=== PATIENT | male | born 1970 | race American Indian/Alaskan Native ===

== ENCOUNTER 2018-11-30 03:20 | Emergency (ER) | payer MEDICARE, MEDICAID ==
[~2018-11-30] VITALS: Ht 175.3 cm; Wt 75.0 kg
[~2018-11-30 03:20] MED LIST: CHANTIX 1 MG TAB1 MG PO; COZAAR50 MG PO; CRESTOR40 MG PO; ZANAFLEX2 M1 PO; ZANTAC150 MG PO
[2018-11-30 03:27] VITALS: Ht 175.3 cm; Wt 75.0 kg
[2018-11-30] MEDS ORDERED: DICLOFENAC SODI50 MG PO (03:42)
[2018-11-30 03:59] VITALS: BP 116/70
== END 2018-11-30 04:00 | disposition home or self-care (01) ==
LOC: D.ER 03:20
DX: M25.512 Pain in left shoulder (principal); M54.5 Low back pain

== ENCOUNTER 2018-12-28 23:50 | Emergency (ER) | payer MEDICARE, MEDICAID ==
[~2018-12-28] VITALS: Ht 175.3 cm; Wt 73.5 kg
[~2018-12-28 23:50] MED LIST changes: +DICLOFENAC SODI50 MG PO
[2018-12-28 23:56] VITALS: Ht 175.3 cm; Wt 73.5 kg
[2018-12-29] MEDS ORDERED: NAPROSYN500 MG PO (00:24)
[2018-12-29 01:02] VITALS: BP 152/78
== END 2018-12-29 01:03 | disposition home or self-care (01) ==
LOC: D.ER 23:50
DX: M25.512 Pain in left shoulder (principal)

== ENCOUNTER 2019-01-03 22:07 | Inpatient (IN) | payer MEDICARE, MEDICAID ==
[~2019-01-03] VITALS: Ht 175.3 cm; Wt 77.3 kg
[~2019-01-03 22:07] MED LIST changes: +NAPROSYN500 MG PO
[2019-01-03] MEDS ORDERED: GLUCOPHAGE500 MG PO (22:14)
[2019-01-03 22:55] LABS: BASOPHILS 0.1 % (0-2); EOSINOPHILS 0.9 % (0-7); HEMATOCRIT 40.9 % (42.0-54.0); HEMOGLOBIN 13.8 g/dL (13.5-17.5); IMMATURE GRANULOCYTES 0.4 % (0-5); LYMPHOCYTES 24.2 % (15-50); MCH 32.2 pg (26.0-34.0); MCHC 33.7 g/dL (31.0-37.0); MCV 95.6 fL (80.0-100.0); MEAN PLATELET VOLUME 8.5 fL (7.4-10.4); NEUTROPHILS 68.4 % (40-80); PLATELET COUNT 407 10x3/uL (130-400); RBC 4.28 10x6/uL (4.20-6.10); RDW 15.6 % (11.5-14.5); WBC 15.9 10x3/uL (4.8-10.8)
[2019-01-03 23:07] LABS: APTT 28.9 SECONDS (22.8-39.4); INR 0.94 (0.85-1.17); PROTIME 12.1 SECONDS (11.6-15.0)
[2019-01-03 23:16] LABS: ALBUMIN 3.2 g/dL (3.4-5.0); ALKALINE PHOSPHATASE 132 U/L (46-116); ALT (SGPT) 158 U/L (10-68); CALC OSMOLALITY 282 mosm/kg (275-300); CALCIUM 9.3 mg/dL (8.5-10.1); CARBON DIOXIDE 28.5 mmol/L (21.0-32.0); CHLORIDE - SERUM 101 mmol/L (98-107); GLUCOSE 113 mg/dL (74-106); POTASSIUM - SERUM 3.3 mmol/L (3.5-5.1); PROTEIN - SERUM 7.8 g/dL (6.4-8.2); SODIUM 141 mmol/L (136-145); UREA NITROGEN 14 mg/dL (7-18); eGFR NON AFRICAN AMERICAN 85 mL/min (90-120)
[2019-01-03 23:22] LABS: CKMB 0.4 U/L (0.0-3.6); CREATINE KINASE 39 UL (21-232); PRO BNP 61 pg/mL (0-125); TROPONIN-I < 0.017 ng/mL (0.000-0.060)
[2019-01-04] VITALS (31 sets, daily range): BP systolic 82–169; BP diastolic 44–99; BMI 23.4; BMI 23.3
[2019-01-04 05:03] LABS: APPEARANCE CLEAR (CLEAR); BILIRUBIN NEGATIVE (NEGATIVE); COLOR YELLOW (YELLOW); GLUCOSE NEGATIVE (NEGATIVE); KETONE NEGATIVE (NEGATIVE); NITRITE NEGATIVE (NEGATIVE); PROTEIN NEGATIVE (NEGATIVE); UROBILINOGEN NORMAL (NORMAL)
[2019-01-04 11:13] LABS: UDS - AMPHET NEGATIVE QUAL (NEGATIVE); UDS - BARB NEGATIVE QUAL (NEGATIVE); UDS - BENZO NEGATIVE QUAL (NEGATIVE); UDS - COCAINE NEGATIVE QUAL (NEGATIVE); UDS - OPIATE POSITIVE QUAL (NEGATIVE); UDS - PCP NEGATIVE QUAL (NEGATIVE); UDS - THC NEGATIVE QUAL (NEGATIVE)
[2019-01-05] VITALS (24 sets, daily range): BP systolic 69–142; BP diastolic 39–84
[2019-01-05 03:33] LABS: BASOPHILS 0.1 % (0-2); EOSINOPHILS 0.3 % (0-7); HEMATOCRIT 30.5 % (42.0-54.0); IMMATURE GRANULOCYTES 0.4 % (0-5); LYMPHOCYTES 4.6 % (15-50); MCH 31.4 pg (26.0-34.0); MCHC 32.8 g/dL (31.0-37.0); MCV 95.9 fL (80.0-100.0); MEAN PLATELET VOLUME 8.6 fL (7.4-10.4); MONOCYTES 5.4 % (2-11); NEUTROPHILS 89.2 % (40-80); PLATELET COUNT 338 10x3/uL (130-400); RBC 3.18 10x6/uL (4.20-6.10); RDW 15.8 % (11.5-14.5); WBC 14.5 10x3/uL (4.8-10.8)
[2019-01-05 03:55] LABS: ANION GAP 11.8 mmol/L (8-16); BILIRUBIN - DIRECT 0.12 mg/dL (0.00-0.30); BILIRUBIN - INDIRECT 0.2 mg/dL (0.00-1.00); BILIRUBIN - TOTAL 0.32 mg/dL (0.2-1.3); CALCIUM 7.6 mg/dL (8.5-10.1); CARBON DIOXIDE 24.2 mmol/L (21.0-32.0); CREATININE - SERUM 1.2 mg/dL (0.6-1.3); MAGNESIUM - SERUM 1.9 mg/dL (1.8-2.4); PHOSPHOROUS 3.8 mg/dL (2.5-4.9)
[2019-01-05 04:01] LABS: ALBUMIN 1.9 g/dL (3.4-5.0); PROTEIN - SERUM 5.6 g/dL (6.4-8.2)
[2019-01-05 04:22] LABS: PRO BNP 52 pg/mL (0-125)
[2019-01-05 04:24] LABS: TROPONIN-I < 0.017 ng/mL (0.000-0.060)
[2019-01-05 08:44] LABS: CALC OSMOLALITY 281 mosm/kg (275-300); CALCIUM 7.4 mg/dL (8.5-10.1); CARBON DIOXIDE 25.2 mmol/L (21.0-32.0); CHLORIDE - SERUM 108 mmol/L (98-107); CREATININE - SERUM 1.1 mg/dL (0.6-1.3); GLUCOSE 123 mg/dL (74-106); POTASSIUM - SERUM 4.1 mmol/L (3.5-5.1); SODIUM 140 mmol/L (136-145); UREA NITROGEN 18 mg/dL (7-18); eGFR NON AFRICAN AMERICAN 76 mL/min (90-120)
[2019-01-05 13:52] LABS: APPEARANCE CLEAR (CLEAR); BILIRUBIN NEGATIVE (NEGATIVE); COLOR AMBER (YELLOW); GLUCOSE NEGATIVE (NEGATIVE); KETONE SMALL mg/dL (NEGATIVE); NITRITE NEGATIVE (NEGATIVE); PROTEIN 1+ mg/dL (NEGATIVE); UROBILINOGEN NORMAL (NORMAL); WHITE CELLS - URINE 0-5 /hpf (0-5)
[2019-01-05 13:53] LABS: AMORPHOUS SEDIMENT >1+ /lpf (NONE SEEN); BACTERIA MANY /hpf (NONE SEEN); EPITHELIAL CELLS 0-5 /hpf (0-5); MUCUS <1+ /lpf (NONE SEEN)
[2019-01-06] VITALS (23 sets, daily range): BP systolic 87–151; BP diastolic 45–74
[2019-01-06 06:17] LABS: BASOPHILS 0.1 % (0-2); EOSINOPHILS 0.5 % (0-7); HEMATOCRIT 28.5 % (42.0-54.0); HEMOGLOBIN 9.3 g/dL (13.5-17.5); IMMATURE GRANULOCYTES 0.3 % (0-5); LYMPHOCYTES 6.5 % (15-50); MCH 31.3 pg (26.0-34.0); MCHC 32.6 g/dL (31.0-37.0); MONOCYTES 4.7 % (2-11); NEUTROPHILS 87.9 % (40-80); PLATELET COUNT 318 10x3/uL (130-400); RBC 2.97 10x6/uL (4.20-6.10); RDW 16.1 % (11.5-14.5)
[2019-01-06 06:18] LABS: WBC 18.2 10x3/uL (4.8-10.8)
[2019-01-06 06:41] LABS: ALBUMIN 1.7 g/dL (3.4-5.0); ALKALINE PHOSPHATASE 75 U/L (46-116); ALT (SGPT) 58 U/L (10-68); BILIRUBIN - TOTAL 0.56 mg/dL (0.2-1.3); CALC OSMOLALITY 277 mosm/kg (275-300); CALCIUM 7.1 mg/dL (8.5-10.1); CARBON DIOXIDE 20.5 mmol/L (21.0-32.0); CHLORIDE - SERUM 107 mmol/L (98-107); GLUCOSE 103 mg/dL (74-106); POTASSIUM - SERUM 3.7 mmol/L (3.5-5.1); PROTEIN - SERUM 5.9 g/dL (6.4-8.2); SODIUM 138 mmol/L (136-145); UREA NITROGEN 19 mg/dL (7-18); eGFR NON AFRICAN AMERICAN 85 mL/min (90-120)
[2019-01-06 08:34] LABS: INR 1.1 (0.85-1.17); PROTIME 13.7 SECONDS (11.6-15.0)
[2019-01-06 15:40] LABS: PROTEIN - BODY FLUID 3.9 G/DL
[2019-01-06 16:50] LABS: EOS BF 1 %; MACROPHAGES BF 7 %; NEUT - BF 89 %
--- NOTE | 2019-01-06 17:39 | MORECARE ---
CASE MANAGEMENT DISCHARGE SUMMARY PATIENT: BRIGITTE HOOKS UNIT: [id number] ADM DATE: 01/04/19 AGE: 48 : 72 SEX: M ROOM/BED: D.2315 AUTHOR: GABO CERRATO PHYSICIAN: REFERRING PHYSICIAN: ARIANNA CHRISTINE MD DATE OF SERVICE: 01/06/19 Discharge Plan Patient Name: BRIGITTE HOOKS Facility: [facility]:[place] : 1970 Planned Disposition: Anticipated Discharge Date: Discharge Date: Expected LOS: Initial Reviewer: [email or web address] Initial Review Date: 01/04/2019 Generated: 01/06/19 6:38 pm Comments DCP- Discharge Planning Updated by [email or web address]: Giselle Yuan on 01/06/19 4:[address] CM attempted to visit with patient regarding discharge planning/ needs. Patient currently on vent no family available. CM will continue to follow and assist as needed with discharge planning / needs Patient Name: BRIGITTE HOOKS Page 10721 at 1739 All edits/amendments must be made on the electronic document DICTATION DATE: 01/06/191737 SHAPER HAND: ANALISA 01/06/191737 RPT#: [id number] DC DATE: STATUS: ADM IN [facility] [address] [place] [address] END OF REPORT
[2019-01-07] VITALS (20 sets, daily range): BP systolic 90–148; BP diastolic 46–84
[2019-01-07 05:03] LABS: INR 1.18 (0.85-1.17); PROTIME 14.5 SECONDS (11.6-15.0)
[2019-01-07 06:59] LABS: HEMATOCRIT 30.2 % (42.0-54.0); HEMOGLOBIN 9.5 g/dL (13.5-17.5); MCH 30.5 pg (26.0-34.0); MCHC 31.5 g/dL (31.0-37.0); MCV 97.1 fL (80.0-100.0); MEAN PLATELET VOLUME 9.2 fL (7.4-10.4); PLATELET COUNT 302 10x3/uL (130-400); RBC 3.11 10x6/uL (4.20-6.10); RDW 16.3 % (11.5-14.5)
[2019-01-07 07:33] LABS: ALBUMIN 1.7 g/dL (3.4-5.0); ALKALINE PHOSPHATASE 113 U/L (46-116); ALT (SGPT) 45 U/L (10-68); BILIRUBIN - TOTAL 0.65 mg/dL (0.2-1.3); CALCIUM 7.4 mg/dL (8.5-10.1); CARBON DIOXIDE 19.9 mmol/L (21.0-32.0); CHLORIDE - SERUM 111 mmol/L (98-107); CREATININE - SERUM 0.9 mg/dL (0.6-1.3); GLUCOSE 101 mg/dL (74-106); MAGNESIUM - SERUM 2.7 mg/dL (1.8-2.4); PROTEIN - SERUM 6.1 g/dL (6.4-8.2); SODIUM 142 mmol/L (136-145); eGFR NON AFRICAN AMERICAN > 90 mL/min (90-120)
[2019-01-07 07:37] LABS: CALC OSMOLALITY 282 mosm/kg (275-300); POTASSIUM - SERUM 4.3 mmol/L (3.5-5.1); UREA NITROGEN 13 mg/dL (7-18)
[2019-01-07 08:26] LABS: BASOPHILS 1 % (0-2); EOSINOPHILS 1 % (0-7); LYMPHOCYTES 4 % (15-50); MONOCYTES 10 % (2-11); NEUTROPHILS 79 % (40-80); PLATELET ESTIMATE NORMAL
[2019-01-07 15:11] LABS: ACID FAST SMEAR Negative (()); AFB SPECIMEN PROCESSING Not Indicated (())
[2019-01-07 15:11] LABS: ACID FAST SMEAR Negative (()); AFB SPECIMEN PROCESSING Concentration (())
[2019-01-08] VITALS (24 sets, daily range): BP systolic 84–109; BP diastolic 52–63
[2019-01-08 07:01] LABS: BASOPHILS 0.1 % (0-2); HEMATOCRIT 26.1 % (42.0-54.0); HEMOGLOBIN 8.4 g/dL (13.5-17.5); IMMATURE GRANULOCYTES 0.6 % (0-5); LYMPHOCYTES 7.1 % (15-50); MCH 30.5 pg (26.0-34.0); MCHC 32.2 g/dL (31.0-37.0); MEAN PLATELET VOLUME 9.5 fL (7.4-10.4); MONOCYTES 6.4 % (2-11); NEUTROPHILS 84.8 % (40-80); PLATELET COUNT 303 10x3/uL (130-400); RBC 2.75 10x6/uL (4.20-6.10); RDW 16.4 % (11.5-14.5)
[2019-01-08 07:06] LABS: MCV 94.9 fL (80.0-100.0); WBC 13.8 10x3/uL (4.8-10.8)
[2019-01-08 07:10] LABS: CALC OSMOLALITY 283 mosm/kg (275-300); CALCIUM 7.5 mg/dL (8.5-10.1); CHLORIDE - SERUM 109 mmol/L (98-107); CREATININE - SERUM 0.9 mg/dL (0.6-1.3); GLUCOSE 147 mg/dL (74-106); SODIUM 141 mmol/L (136-145); UREA NITROGEN 12 mg/dL (7-18); eGFR NON AFRICAN AMERICAN > 90 mL/min (90-120)
[2019-01-08 07:13] LABS: CARBON DIOXIDE 24.9 mmol/L (21.0-32.0); POTASSIUM - SERUM 3.4 mmol/L (3.5-5.1)
[2019-01-08 16:09] LABS: FUNGUS STAIN Final report (())
[2019-01-08 16:09] LABS: FUNGUS STAIN Final report (())
--- NOTE | 2019-01-08 19:01 | MORECARE ---
CASE MANAGEMENT DISCHARGE SUMMARY PATIENT: BRIGITTE HOOKS UNIT: [id number] ADM DATE: 01/04/19 AGE: 48 : 72 SEX: M ROOM/BED: D.2315 AUTHOR: GABO CERRATO PHYSICIAN: REFERRING PHYSICIAN: ARIANNA CHRISTINE MD DATE OF SERVICE: 01/08/19 Discharge Plan Patient Name: BRIGITTE HOOKS Facility: [facility] [place] : 1970 Planned Disposition: Anticipated Discharge Date: Discharge Date: Expected LOS: Initial Reviewer: [email or web address] Initial Review Date: 01/08/2019 Generated: 01/08/19 8:00 pm DCP- Discharge Planning Updated by [email or web address]: Giselle Yuan on 01/06/19 4:[address] CM attempted to visit with patient regarding discharge planning/ needs. Patient currently on vent no family available. CM will continue to follow and assist as needed with discharge planning / needs Last DP export: 01/06/19 4:38 p Patient Name: BRIGITTE HOOKS Page 36005 at 1901 All edits/amendments must be made on the electronic document DICTATION DATE: 01/08/191899 CAMPAIGN CONSULTANT: ANALISA 01/08/191899 RPT#: [id number] DC DATE: STATUS: ADM IN [facility] [address] [place] [address] END OF REPORT
--- NOTE | 2019-01-08 19:07 | MORECARE ---
CASE MANAGEMENT DISCHARGE SUMMARY PATIENT: BRIGITTE HOOKS UNIT: [id number] ADM DATE: 01/04/19 AGE: 48 : 72 SEX: M ROOM/BED: D.2315 AUTHOR: SAQIB,DOC PHYSICIAN: REFERRING PHYSICIAN: ARIANNA CHRISTINE MD DATE OF SERVICE: 01/08/19 Discharge Plan Patient Name: BRIGITTE HOOKS Facility: [facility]:[place] : 1970 Planned Disposition: Anticipated Discharge Date: Discharge Date: Expected LOS: Initial Reviewer: [email or web address] Initial Review Date: 01/08/2019 Generated: 01/08/19 8:07 pm Comments DCP- Discharge Planning Updated by [email or web address]: Giselle Yuan on 01/08/19 6:[address] Patient Name: BRIGITTE HOOKS Admission Status: ER Accout number: [id number] Admission Date: 01-04-2019 : 1970 Admission Diagnosis:SPONTANEOUS TENSION PNEUMOTHORAX Attending: ARIANNA CHRISTINE Current LOS: 4 Anticipated DC Date: Planned Disposition: Primary Insurance: [employer] Discharge Planning Comments: CM met with spouse (Manda) after explaining CM role and obtaining verbal consent. Patient lives at home with his Manda and plans to return there upon discharge. Spouse feels this would be a safe discharge. CM discussed availability / needs of home health and medical equipment. Spouse denies any discharge needs at this time. He will have family drive him home upon discharge. CM will continue to follow and assist as needed with discharge planning / needs. Anodize Machine Operator: Giselle Yuan DCP- Discharge Planning Updated by [id number]: Giselle Yuan on 01/06/19 4:[address] CM attempted to visit with patient regarding discharge planning/ needs. Patient currently on vent no family available. CM will continue to follow and assist as needed with discharge planning / needs DCPIA - Discharge Planning Initial Assessment Updated by [email or web address]: Giselle Yuan on 01/08/19 7:01 pm * Is the patient Alert and Oriented? No * How many steps to enter\exit or inside your home? * PCP EDVIN HINTON MD * Pharmacy [facility] * Preadmission Environment Home with Family * ADLs Independent * List name and contact numbers for known caregivers / representatives who currently or will assist patient after discharge: MANDA HOOKS - SPOUSE- [phone] * Verbal permission to speak to the caregivers and representatives has been obtained from the patient. N/A * Community resources currently utilized None * Additional services required to return to the preadmission environment? No * Can the patient safely return to the preadmission environment? Yes * Has this patient been hospitalized within the prior 30 days at any hospital? No Last DP export: 01/08/19 6:01 pm Patient Name: BRIGITTE HOOKS Page 25263 at 1907 All edits/amendments must be made on the electronic document DICTATION DATE: 01/08/191906 MITTEN SEWER: ANALISA 01/08/191906 RPT#: [id number] DC DATE: STATUS: ADM IN [facility] [address] [place] [address] END OF REPORT
[2019-01-09] VITALS (22 sets, daily range): BP systolic 97–119; BP diastolic 55–69
[2019-01-09 04:53] LABS: BASOPHILS 0.1 % (0-2); EOSINOPHILS 0.9 % (0-7); HEMATOCRIT 25.4 % (42.0-54.0); HEMOGLOBIN 8.3 g/dL (13.5-17.5); IMMATURE GRANULOCYTES 0.9 % (0-5); LYMPHOCYTES 10.1 % (15-50); MCH 30.6 pg (26.0-34.0); MCHC 32.7 g/dL (31.0-37.0); MCV 93.7 fL (80.0-100.0); MEAN PLATELET VOLUME 9.7 fL (7.4-10.4); MONOCYTES 5.9 % (2-11); NEUTROPHILS 82.1 % (40-80); PLATELET COUNT 308 10x3/uL (130-400); RBC 2.71 10x6/uL (4.20-6.10); RDW 16.5 % (11.5-14.5)
[2019-01-09 04:54] LABS: CALC OSMOLALITY 282 mosm/kg (275-300); CALCIUM 7.6 mg/dL (8.5-10.1); CARBON DIOXIDE 28.8 mmol/L (21.0-32.0); CHLORIDE - SERUM 106 mmol/L (98-107); CREATININE - SERUM 0.9 mg/dL (0.6-1.3); GLUCOSE 132 mg/dL (74-106); POTASSIUM - SERUM 3.4 mmol/L (3.5-5.1); SODIUM 141 mmol/L (136-145); UREA NITROGEN 12 mg/dL (7-18); eGFR NON AFRICAN AMERICAN > 90 mL/min (90-120)
[2019-01-09 12:51] LABS: EOS BF 1 %; MACROPHAGES BF 8 %; MESOTHELIALS BF 4 %; NEUT - BF 84 %
[2019-01-09 16:28] LABS: HEMATOCRIT 24.4 % (42.0-54.0); HEMOGLOBIN 7.9 g/dL (13.5-17.5)
[2019-01-09 18:07] LABS: AEROBE ID Final report (()); RESULT 1 Rothia mucilaginosa (())
[2019-01-10] VITALS (23 sets, daily range): BP systolic 100–175; BP diastolic 55–99
[2019-01-10 05:44] LABS: BASOPHILS 0.2 % (0-2); EOSINOPHILS 1.3 % (0-7); HEMATOCRIT 23.8 % (42.0-54.0); HEMOGLOBIN 7.9 g/dL (13.5-17.5); IMMATURE GRANULOCYTES 0.7 % (0-5); MCHC 33.2 g/dL (31.0-37.0); MCV 93.3 fL (80.0-100.0); MEAN PLATELET VOLUME 10.7 fL (7.4-10.4); MONOCYTES 4.9 % (2-11); NEUTROPHILS 81.9 % (40-80); PLATELET COUNT 315 10x3/uL (130-400); RBC 2.55 10x6/uL (4.20-6.10); RDW 16.1 % (11.5-14.5); WBC 12.8 10x3/uL (4.8-10.8)
[2019-01-10 06:05] LABS: ALBUMIN 1.5 g/dL (3.4-5.0); ALKALINE PHOSPHATASE 204 U/L (46-116); ALT (SGPT) 32 U/L (10-68); AMYLASE - SERUM 90 U/L (25-115); BILIRUBIN - TOTAL 1.29 mg/dL (0.2-1.3); CALC OSMOLALITY 286 mosm/kg (275-300); CALCIUM 7.5 mg/dL (8.5-10.1); CARBON DIOXIDE 31.3 mmol/L (21.0-32.0); CHLORIDE - SERUM 105 mmol/L (98-107); CREATININE - SERUM 1.1 mg/dL (0.6-1.3); GLUCOSE 133 mg/dL (74-106); LIPASE 122 U/L (73-393); POTASSIUM - SERUM 3.6 mmol/L (3.5-5.1); PRO BNP 260 pg/mL (0-125); PROTEIN - SERUM 5.9 g/dL (6.4-8.2); SODIUM 142 mmol/L (136-145); eGFR NON AFRICAN AMERICAN 76 mL/min (90-120)
[2019-01-10 06:06] LABS: UREA NITROGEN 19 mg/dL (7-18)
[2019-01-10 15:12] LABS: ACID FAST SMEAR Negative (()); AFB SPECIMEN PROCESSING Concentration (())
[2019-01-11] VITALS (24 sets, daily range): BP systolic 113–165; BP diastolic 71–843; Ht 175.3 cm; Wt 77.3 kg
[2019-01-11 05:48] LABS: BASOPHILS 0.1 % (0-2); EOSINOPHILS 1.2 % (0-7); HEMATOCRIT 23.6 % (42.0-54.0); HEMOGLOBIN 7.6 g/dL (13.5-17.5); IMMATURE GRANULOCYTES 0.5 % (0-5); LYMPHOCYTES 13.1 % (15-50); MCH 30.4 pg (26.0-34.0); MCHC 32.2 g/dL (31.0-37.0); MCV 94.4 fL (80.0-100.0); MONOCYTES 5.6 % (2-11); NEUTROPHILS 79.5 % (40-80); PLATELET COUNT 310 10x3/uL (130-400); RDW 16.2 % (11.5-14.5)
[2019-01-11 06:18] LABS: ALBUMIN 1.5 g/dL (3.4-5.0); ALKALINE PHOSPHATASE 190 U/L (46-116); ALT (SGPT) 28 U/L (10-68); BILIRUBIN - TOTAL 0.66 mg/dL (0.2-1.3); CALCIUM 7.3 mg/dL (8.5-10.1); CARBON DIOXIDE 26.6 mmol/L (21.0-32.0); CREATININE - SERUM 0.9 mg/dL (0.6-1.3); GLUCOSE 133 mg/dL (74-106); PRO BNP 574 pg/mL (0-125); PROTEIN - SERUM 5.7 g/dL (6.4-8.2); UREA NITROGEN 20 mg/dL (7-18); eGFR NON AFRICAN AMERICAN > 90 mL/min (90-120)
[2019-01-11 06:23] LABS: CHLORIDE - SERUM 109 mmol/L (98-107); SODIUM 144 mmol/L (136-145)
[2019-01-11 07:21] LABS: CALC OSMOLALITY 292 mosm/kg (275-300)
[2019-01-12] VITALS (23 sets, daily range): BP systolic 120–149; BP diastolic 72–94
[2019-01-12 07:04] LABS: ALBUMIN 1.8 g/dL (3.4-5.0); ALKALINE PHOSPHATASE 192 U/L (46-116); ALT (SGPT) 29 U/L (10-68); BILIRUBIN - TOTAL 0.92 mg/dL (0.2-1.3); CALC OSMOLALITY 293 mosm/kg (275-300); CALCIUM 7.4 mg/dL (8.5-10.1); CARBON DIOXIDE 23.2 mmol/L (21.0-32.0); CHLORIDE - SERUM 111 mmol/L (98-107); CREATININE - SERUM 0.9 mg/dL (0.6-1.3); GLUCOSE 124 mg/dL (74-106); PROTEIN - SERUM 5.6 g/dL (6.4-8.2); SODIUM 146 mmol/L (136-145); UREA NITROGEN 19 mg/dL (7-18); eGFR NON AFRICAN AMERICAN > 90 mL/min (90-120)
[2019-01-12 07:05] LABS: POTASSIUM - SERUM 3.4 mmol/L (3.5-5.1)
[2019-01-12 07:25] LABS: BASOPHILS 0.1 % (0-2); EOSINOPHILS 1.9 % (0-7); IMMATURE GRANULOCYTES 0.5 % (0-5); LYMPHOCYTES 15.3 % (15-50); MCH 31.3 pg (26.0-34.0); MEAN PLATELET VOLUME 10.5 fL (7.4-10.4); MONOCYTES 5.9 % (2-11); NEUTROPHILS 76.3 % (40-80); PLATELET COUNT 299 10x3/uL (130-400); RDW 16.2 % (11.5-14.5); WBC 10.3 10x3/uL (4.8-10.8)
[2019-01-12 07:36] LABS: HEMATOCRIT 29.4 % (42.0-54.0); MCV 91.9 fL (80.0-100.0)
[2019-01-13] VITALS (24 sets, daily range): BP systolic 120–155; BP diastolic 75–96
[2019-01-13 06:33] LABS: BASOPHILS 0.2 % (0-2); HEMATOCRIT 30.6 % (42.0-54.0); HEMOGLOBIN 9.9 g/dL (13.5-17.5); IMMATURE GRANULOCYTES 0.5 % (0-5); LYMPHOCYTES 11.5 % (15-50); MCH 30.7 pg (26.0-34.0); MCHC 32.4 g/dL (31.0-37.0); MEAN PLATELET VOLUME 10.6 fL (7.4-10.4); MONOCYTES 7.4 % (2-11); NEUTROPHILS 78.4 % (40-80); PLATELET COUNT 297 10x3/uL (130-400); RBC 3.22 10x6/uL (4.20-6.10); RDW 16.8 % (11.5-14.5); WBC 10.3 10x3/uL (4.8-10.8)
[2019-01-13 06:55] LABS: ALBUMIN 1.7 g/dL (3.4-5.0); ALKALINE PHOSPHATASE 167 U/L (46-116); ALT (SGPT) 32 U/L (10-68); BILIRUBIN - TOTAL 0.64 mg/dL (0.2-1.3); CALC OSMOLALITY 291 mosm/kg (275-300); CALCIUM 7.7 mg/dL (8.5-10.1); CARBON DIOXIDE 25.9 mmol/L (21.0-32.0); CHLORIDE - SERUM 112 mmol/L (98-107); CREATININE - SERUM 0.8 mg/dL (0.6-1.3); GLUCOSE 133 mg/dL (74-106); POTASSIUM - SERUM 3.9 mmol/L (3.5-5.1); PROTEIN - SERUM 6.2 g/dL (6.4-8.2); SODIUM 145 mmol/L (136-145); UREA NITROGEN 16 mg/dL (7-18); eGFR NON AFRICAN AMERICAN > 90 mL/min (90-120)
[2019-01-13 12:10] LABS: FUNGUS MYCOLOGY CULTURE Preliminary report (()); FUNGUS STAIN RESULT 1 Hyphae observed (())
[2019-01-13 12:10] LABS: FUNGUS CULTURE RESULT 1 Candida albicans (()); FUNGUS MYCOLOGY CULTURE Preliminary report (())
[2019-01-13 17:08] LABS: AEROBE ID Final report (())
[2019-01-14] VITALS (20 sets, daily range): BP systolic 117–148; BP diastolic 67–90
[2019-01-14 07:29] LABS: BASOPHILS 0.2 % (0-2); EOSINOPHILS 2.2 % (0-7); HEMATOCRIT 31.6 % (42.0-54.0); HEMOGLOBIN 10.2 g/dL (13.5-17.5); IMMATURE GRANULOCYTES 0.3 % (0-5); LYMPHOCYTES 11.7 % (15-50); MCH 30.7 pg (26.0-34.0); MCHC 32.3 g/dL (31.0-37.0); MCV 95.2 fL (80.0-100.0); MEAN PLATELET VOLUME 10.4 fL (7.4-10.4); MONOCYTES 5.7 % (2-11); NEUTROPHILS 79.9 % (40-80); RBC 3.32 10x6/uL (4.20-6.10); RDW 16.7 % (11.5-14.5); WBC 9.5 10x3/uL (4.8-10.8)
[2019-01-14 07:35] LABS: PLATELET COUNT 364 10x3/uL (130-400)
[2019-01-14 07:47] LABS: ALBUMIN 1.9 g/dL (3.4-5.0); ALKALINE PHOSPHATASE 153 U/L (46-116); BILIRUBIN - TOTAL 0.49 mg/dL (0.2-1.3); CALC OSMOLALITY 290 mosm/kg (275-300); CALCIUM 7.9 mg/dL (8.5-10.1); CARBON DIOXIDE 28.8 mmol/L (21.0-32.0); CHLORIDE - SERUM 110 mmol/L (98-107); CREATININE - SERUM 0.7 mg/dL (0.6-1.3); GLUCOSE 128 mg/dL (74-106); PROTEIN - SERUM 6.2 g/dL (6.4-8.2); SODIUM 145 mmol/L (136-145); UREA NITROGEN 12 mg/dL (7-18); eGFR NON AFRICAN AMERICAN > 90 mL/min (90-120)
[2019-01-14 07:49] LABS: ALT (SGPT) 41 U/L (10-68); POTASSIUM - SERUM 3.1 mmol/L (3.5-5.1)
[2019-01-15] VITALS (24 sets, daily range): BP systolic 125–164; BP diastolic 68–110
[2019-01-15 05:23] LABS: BASOPHILS 0.2 % (0-2); EOSINOPHILS 1.8 % (0-7); HEMATOCRIT 31.3 % (42.0-54.0); HEMOGLOBIN 10.1 g/dL (13.5-17.5); IMMATURE GRANULOCYTES 0.1 % (0-5); LYMPHOCYTES 18.1 % (15-50); MCH 30.6 pg (26.0-34.0); MCHC 32.3 g/dL (31.0-37.0); MCV 94.8 fL (80.0-100.0); MEAN PLATELET VOLUME 10.5 fL (7.4-10.4); MONOCYTES 6.8 % (2-11); PLATELET COUNT 386 10x3/uL (130-400); RDW 16.5 % (11.5-14.5); WBC 8.5 10x3/uL (4.8-10.8)
[2019-01-15 05:37] LABS: ALKALINE PHOSPHATASE 139 U/L (46-116); ALT (SGPT) 32 U/L (10-68); BILIRUBIN - TOTAL 0.63 mg/dL (0.2-1.3); CALC OSMOLALITY 287 mosm/kg (275-300); CALCIUM 8.1 mg/dL (8.5-10.1); CARBON DIOXIDE 29.1 mmol/L (21.0-32.0); CHLORIDE - SERUM 106 mmol/L (98-107); CREATININE - SERUM 0.7 mg/dL (0.6-1.3); GLUCOSE 103 mg/dL (74-106); PROTEIN - SERUM 6.6 g/dL (6.4-8.2); SODIUM 144 mmol/L (136-145); UREA NITROGEN 14 mg/dL (7-18); eGFR NON AFRICAN AMERICAN > 90 mL/min (90-120)
[2019-01-16] VITALS (14 sets, daily range): BP systolic 130–162; BP diastolic 66–97
[2019-01-16 04:05] LABS: BASOPHILS 0.2 % (0-2); EOSINOPHILS 1.4 % (0-7); HEMATOCRIT 32.7 % (42.0-54.0); HEMOGLOBIN 10.7 g/dL (13.5-17.5); IMMATURE GRANULOCYTES 0.3 % (0-5); LYMPHOCYTES 10.9 % (15-50); MCH 31.1 pg (26.0-34.0); MCHC 32.7 g/dL (31.0-37.0); MCV 95.1 fL (80.0-100.0); MEAN PLATELET VOLUME 9.5 fL (7.4-10.4); MONOCYTES 6.4 % (2-11); NEUTROPHILS 80.8 % (40-80); PLATELET COUNT 426 10x3/uL (130-400); RBC 3.44 10x6/uL (4.20-6.10); RDW 16.2 % (11.5-14.5); WBC 10.7 10x3/uL (4.8-10.8)
[2019-01-16 04:17] LABS: ALBUMIN 2.1 g/dL (3.4-5.0); ALKALINE PHOSPHATASE 121 U/L (46-116); ALT (SGPT) 24 U/L (10-68); BILIRUBIN - TOTAL 0.52 mg/dL (0.2-1.3); CALCIUM 8.1 mg/dL (8.5-10.1); CARBON DIOXIDE 30.4 mmol/L (21.0-32.0); CHLORIDE - SERUM 105 mmol/L (98-107); CREATININE - SERUM 0.7 mg/dL (0.6-1.3); GLUCOSE 102 mg/dL (74-106); POTASSIUM - SERUM 3.2 mmol/L (3.5-5.1); PROTEIN - SERUM 6.5 g/dL (6.4-8.2); SODIUM 142 mmol/L (136-145); eGFR NON AFRICAN AMERICAN > 90 mL/min (90-120)
[2019-01-16 04:20] LABS: CALC OSMOLALITY 280 mosm/kg (275-300); UREA NITROGEN 8 mg/dL (7-18)
--- NOTE | 2019-01-16 12:54 | MORECARE ---
CASE MANAGEMENT DISCHARGE SUMMARY PATIENT: BRIGITTE HOOKS UNIT: [id number] ADM DATE: 01/04/19 AGE: 49 : 72 SEX: M ROOM/BED: D.2315 AUTHOR: SAQIB,DOC PHYSICIAN: REFERRING PHYSICIAN: ARIANNA CHRISTINE MD DATE OF SERVICE: 01/16/19 Discharge Plan Patient Name: BRIGITTE HOOKS Facility: [facility]:[place] : 1970 Planned Disposition: Anticipated Discharge Date: Discharge Date: Expected LOS: Initial Reviewer: [email or web address] Initial Review Date: 01/08/2019 Generated: 01/16/19 1:53 pm Comments DCP- Discharge Planning Updated by [email or web address]: Giselle Yuan on 01/16/19 11:[address] CM SPOKE WITH PATIENT AND FAMILY AT BEDSIDE. THEY WOULD LIKE FOR PATIENT TO GO TO INPATIENT REHAB PRIOR TO GOING HOME IF PATIENT QUALIFIES. CM WILL CONTINUE TO FOLLOW AND ASSIST NEEDED WITH DISCHARGE PLANNING / NEEDS. DCP- Discharge Planning Updated by [id number]: Giselle Yuan on 01/08/19 6:[address] Patient Name: BRIGITTE HOOKS Admission Status: ER Accout number: [id number] Admission Date: 01-04-2019 : 1970 Admission Diagnosis:SPONTANEOUS TENSION PNEUMOTHORAX Attending: ARIANNA CHRISTINE Current LOS: 4 Anticipated DC Date: Planned Disposition: Primary Insurance: [employer] Discharge Planning Comments: CM met with spouse (Manda) after explaining CM role and obtaining verbal consent. Patient lives at home with his Manda and plans to return there upon discharge. Spouse feels this would be a safe discharge. CM discussed availability / needs of home health and medical equipment. Spouse denies any discharge needs at this time. He will have family drive him home upon discharge. CM will continue to follow and assist as needed with discharge planning / needs. Wire Wrapper Machine Operator: Giselle Yuan DCP- Discharge Planning Updated by [email or web address]: Giselle Yuan on 01/06/19 4:[address] CM attempted to visit with patient regarding discharge planning/ needs. Patient currently on vent no family available. CM will continue to follow and assist as needed with discharge planning / needs DCPIA - Discharge Planning Initial Assessment Updated by [email or web address]: Giselle Yuan on 01/08/19 7:01 pm * Is the patient Alert and Oriented? No * How many steps to enter\exit or inside your home? * PCP EDVIN HINTON MD * Pharmacy [facility] * Preadmission Environment Home with Family * ADLs Independent * List name and contact numbers for known caregivers / representatives who currently or will assist patient after discharge: MANDA HOOKS - SPOUSE- [phone] * Verbal permission to speak to the caregivers and representatives has been obtained from the patient. N/A * Community resources currently utilized None * Additional services required to return to the preadmission environment? No * Can the patient safely return to the preadmission environment? Yes * Has this patient been hospitalized within the prior 30 days at any hospital? No Last DP export: 01/08/19 6:07 pm Patient Name: BRIGITTE HOOKS Page 57802 at 1254 All edits/amendments must be made on the electronic document DICTATION DATE: 01/16/19 125 CEMENT BASED MATERIALS PUMP TENDER: ANALISA 01/16/19 1253 RPT#: [id number] DC DATE: STATUS: ADM IN [facility] [address] [place] [address] END OF REPORT
[2019-01-17 04:00] VITALS: BP 149/82
[2019-01-17 07:56] VITALS: BP 147/83
[2019-01-17 08:07] LABS: BASOPHILS 0.2 % (0-2); HEMATOCRIT 31.9 % (42.0-54.0); HEMOGLOBIN 10.2 g/dL (13.5-17.5); IMMATURE GRANULOCYTES 0.2 % (0-5); LYMPHOCYTES 18.8 % (15-50); MCH 30.1 pg (26.0-34.0); MCV 94.1 fL (80.0-100.0); MEAN PLATELET VOLUME 9.4 fL (7.4-10.4); MONOCYTES 7.4 % (2-11); NEUTROPHILS 70.4 % (40-80); PLATELET COUNT 391 10x3/uL (130-400); RBC 3.39 10x6/uL (4.20-6.10); RDW 15.6 % (11.5-14.5); WBC 8.2 10x3/uL (4.8-10.8)
[2019-01-17 08:22] LABS: CALC OSMOLALITY 280 mosm/kg (275-300); CHLORIDE - SERUM 103 mmol/L (98-107); CREATININE - SERUM 0.7 mg/dL (0.6-1.3); GLUCOSE 97 mg/dL (74-106); SODIUM 142 mmol/L (136-145); UREA NITROGEN 6 mg/dL (7-18); eGFR NON AFRICAN AMERICAN > 90 mL/min (90-120)
[2019-01-17 08:34] LABS: POTASSIUM - SERUM 2.7 mmol/L (3.5-5.1)
[2019-01-17 11:37] VITALS: BP 151/80
[2019-01-17 15:56] VITALS: BP 149/86
[2019-01-17 20:00] VITALS: BP 145/86
[2019-01-18] VITALS (7 sets, daily range): BP systolic 136–158; BP diastolic 67–88
[2019-01-18 09:02] LABS: BASOPHILS 0.2 % (0-2); EOSINOPHILS 3.1 % (0-7); HEMOGLOBIN 10.7 g/dL (13.5-17.5); IMMATURE GRANULOCYTES 0.2 % (0-5); LYMPHOCYTES 20.1 % (15-50); MCH 30.7 pg (26.0-34.0); MCHC 32.4 g/dL (31.0-37.0); MCV 94.8 fL (80.0-100.0); MEAN PLATELET VOLUME 10.1 fL (7.4-10.4); MONOCYTES 8.2 % (2-11); NEUTROPHILS 68.2 % (40-80); PLATELET COUNT 414 10x3/uL (130-400); RBC 3.48 10x6/uL (4.20-6.10); RDW 15.8 % (11.5-14.5); WBC 8.2 10x3/uL (4.8-10.8)
[2019-01-18 09:07] LABS: CALC OSMOLALITY 277 mosm/kg (275-300); CALCIUM 8.2 mg/dL (8.5-10.1); CARBON DIOXIDE 25.4 mmol/L (21.0-32.0); CHLORIDE - SERUM 104 mmol/L (98-107); CREATININE - SERUM 0.7 mg/dL (0.6-1.3); GLUCOSE 83 mg/dL (74-106); POTASSIUM - SERUM 3.4 mmol/L (3.5-5.1); SODIUM 141 mmol/L (136-145); UREA NITROGEN 6 mg/dL (7-18); eGFR NON AFRICAN AMERICAN > 90 mL/min (90-120)
[2019-01-18 12:09] LABS: IMMUNOGLOBULIN E 9 IU/mL (6-495)
[2019-01-18] MEDS ORDERED: NEURONTIN 300300 MG PO (13:49)
[2019-01-19 03:55] VITALS: BP 158/78
[2019-01-19 04:48] LABS: BASOPHILS 0.3 % (0-2); HEMATOCRIT 33.4 % (42.0-54.0); HEMOGLOBIN 10.9 g/dL (13.5-17.5); IMMATURE GRANULOCYTES 0.5 % (0-5); LYMPHOCYTES 20.3 % (15-50); MCH 30.4 pg (26.0-34.0); MCHC 32.6 g/dL (31.0-37.0); MEAN PLATELET VOLUME 10.1 fL (7.4-10.4); MONOCYTES 7.8 % (2-11); NEUTROPHILS 68.1 % (40-80); RBC 3.59 10x6/uL (4.20-6.10); RDW 15.4 % (11.5-14.5); WBC 7.6 10x3/uL (4.8-10.8)
[2019-01-19 04:50] LABS: PLATELET COUNT 321 10x3/uL (130-400)
[2019-01-19 04:54] LABS: CALC OSMOLALITY 276 mosm/kg (275-300); CALCIUM 8.4 mg/dL (8.5-10.1); CARBON DIOXIDE 26.1 mmol/L (21.0-32.0); CHLORIDE - SERUM 105 mmol/L (98-107); CREATININE - SERUM 0.8 mg/dL (0.6-1.3); GLUCOSE 85 mg/dL (74-106); MAGNESIUM - SERUM 1.6 mg/dL (1.8-2.4); POTASSIUM - SERUM 3.3 mmol/L (3.5-5.1); SODIUM 141 mmol/L (136-145); eGFR NON AFRICAN AMERICAN > 90 mL/min (90-120)
[2019-01-19 04:56] LABS: UREA NITROGEN 4 mg/dL (7-18)
[2019-01-19 08:10] VITALS: BP 154/89
[2019-01-19 11:55] LABS: MAGNESIUM - SERUM 1.7 mg/dL (1.8-2.4)
[2019-01-19 11:57] LABS: POTASSIUM - SERUM 3.9 mmol/L (3.5-5.1)
--- NOTE | 2019-01-20 08:31 | MORECARE ---
CASE MANAGEMENT DISCHARGE SUMMARY PATIENT: BRIGITTE HOOKS UNIT: [id number] ADM DATE: 01/04/19 AGE: 49 : 72 SEX: M ROOM/BED: D.2104 AUTHOR: SAQIB,DOC PHYSICIAN: REFERRING PHYSICIAN: ARIANNA CHRISTINE MD DATE OF SERVICE: 01/20/19 Discharge Plan Patient Name: BRIGITTE HOOKS Facility: [facility]:[place] : 1970 Planned Disposition: Anticipated Discharge Date: Discharge Date: 01/19/2019 Expected LOS: Initial Reviewer: [email or web address] Initial Review Date: 01/08/2019 Generated: 01/20/19 9:31 am Comments DCP- Discharge Planning Updated by [email or web address]: Giselle Yuan on 01/16/19 11:[address] CM SPOKE WITH PATIENT AND FAMILY AT BEDSIDE. THEY WOULD LIKE FOR PATIENT TO GO TO INPATIENT REHAB PRIOR TO GOING HOME IF PATIENT QUALIFIES. CM WILL CONTINUE TO FOLLOW AND ASSIST NEEDED WITH DISCHARGE PLANNING / NEEDS. DCP- Discharge Planning Updated by [id number]: Giselle Yuan on 01/08/19 6:[address] Patient Name: BRIGITTE HOOKS Admission Status: ER Accout number: [id number] Admission Date: 01-04-2019 : 1970 Admission Diagnosis:SPONTANEOUS TENSION PNEUMOTHORAX Attending: ARIANNA CHRISTINE Current LOS: 4 Anticipated DC Date: Planned Disposition: Primary Insurance: [facility] MEDICARE SOLUTIONS Discharge Planning Comments: CM met with spouse (Manda) after explaining CM role and obtaining verbal consent. Patient lives at home with his Manda and plans to return there upon discharge. Spouse feels this would be a safe discharge. CM discussed availability / needs of home health and medical equipment. Spouse denies any discharge needs at this time. He will have family drive him home upon discharge. CM will continue to follow and assist as needed with discharge planning / needs. Can Filling And Closing Machine Tender: Giselle Yuan DCP- Discharge Planning Updated by [email or web address]: Giselle Yuan on 01/06/19 4:[address] CM attempted to visit with patient regarding discharge planning/ needs. Patient currently on vent no family available. CM will continue to follow and assist as needed with discharge planning / needs DCPIA - Discharge Planning Initial Assessment Updated by [email or web address]: Giselle Yuan on 01/08/19 7:01 pm * Is the patient Alert and Oriented? No * How many steps to enter\exit or inside your home? * PCP EDVIN HINTON MD * Pharmacy [facility] * Preadmission Environment Home with Family * ADLs Independent * List name and contact numbers for known caregivers / representatives who currently or will assist patient after discharge: MANDA HOOKS - [facility]- [phone] * Verbal permission to speak to the caregivers and representatives has been obtained from the patient. N/A * Community resources currently utilized None * Additional services required to return to the preadmission environment? No * Can the patient safely return to the preadmission environment? Yes * Has this patient been hospitalized within the prior 30 days at any hospital? No Last DP export: 01/16/19 11:53 am Patient Name: BRIGITTE HOOKS Page 71520 at 0831 All edits/amendments must be made on the electronic document DICTATION DATE: 01/20/19829 ANIMAL HOSPITAL CLERK: ANALISA 01/20/19829 RPT#: [id number] DC DATE:01/19/19 STATUS: DIS IN [facility] [address] [place] [address] END OF REPORT
--- NOTE | 2019-01-20 08:37 | MORECARE ---
CASE MANAGEMENT DISCHARGE SUMMARY PATIENT: BRIGITTE HOOKS UNIT: [id number] ADM DATE: 01/04/19 AGE: 49 : 72 SEX: M ROOM/BED: D.2104 AUTHOR: SAQIB,DOC PHYSICIAN: REFERRING PHYSICIAN: ARIANNA CHRISTINE MD DATE OF SERVICE: 01/20/19 Discharge Plan Patient Name: BRIGITTE HOOKS Facility: [facility]:[place] : 1970 Planned Disposition: Left Against Medical Advice Anticipated Discharge Date: 01/19/19 Discharge Date: 01/19/2019 Expected LOS: 15 Initial Reviewer: [email or web address] Initial Review Date: 01/08/2019 Generated: 01/20/19 9:37 am Comments DCP- Discharge Planning Updated by [email or web address]: Giselle Yuan on 01/16/19 11:[address] CM SPOKE WITH PATIENT AND FAMILY AT BEDSIDE. THEY WOULD LIKE FOR PATIENT TO GO TO INPATIENT REHAB PRIOR TO GOING HOME IF PATIENT QUALIFIES. CM WILL CONTINUE TO FOLLOW AND ASSIST NEEDED WITH DISCHARGE PLANNING / NEEDS. DCP- Discharge Planning Updated by [email or web address]: Giselle Yuan on 01/08/19 6:[address] Patient Name: BRIGITTE HOOKS Admission Status: ER Accout number: [id number] Admission Date: 01-04-2019 : 1970 Admission Diagnosis:SPONTANEOUS TENSION PNEUMOTHORAX Attending: ARIANNA CHRISTINE Current LOS: 4 Anticipated DC Date: Planned Disposition: Primary Insurance: [employer] Discharge Planning Comments: CM met with spouse (Manda) after explaining CM role and obtaining verbal consent. Patient lives at home with his Manda and plans to return there upon discharge. Spouse feels this would be a safe discharge. CM discussed availability / needs of home health and medical equipment. Spouse denies any discharge needs at this time. He will have family drive him home upon discharge. CM will continue to follow and assist as needed with discharge planning / needs. Gallery Or Museum Curator: Giselle Yuan DCP- Discharge Planning Updated by [id number]: Giselle Yuan on 01/06/19 4:[address] CM attempted to visit with patient regarding discharge planning/ needs. Patient currently on vent no family available. CM will continue to follow and assist as needed with discharge planning / needs DCPIA - Discharge Planning Initial Assessment Updated by [id number]: Giselle Yuan on 01/08/19 7:01 pm * Is the patient Alert and Oriented? No * How many steps to enter\exit or inside your home? * PCP EDVIN HINTON MD * Pharmacy [facility] * Preadmission Environment Home with Family * ADLs Independent * List name and contact numbers for known caregivers / representatives who currently or will assist patient after discharge: MANDA HOOKS - [facility]- [phone] * Verbal permission to speak to the caregivers and representatives has been obtained from the patient. N/A * Community resources currently utilized None * Additional services required to return to the preadmission environment? No * Can the patient safely return to the preadmission environment? Yes * Has this patient been hospitalized within the prior 30 days at any hospital? No Last DP export: 01/16/19 11:53 am Patient Name: BRIGITTE HOOKS Page 73339 at 0837 All edits/amendments must be made on the electronic document DICTATION DATE: 01/20/1937 DRIVERS LICENSE EXAMINER: ANALISA 01/20/1937 RPT#: [id number] DC DATE:01/19/19 STATUS: DIS IN [facility] [address] [place] [address] END OF REPORT
== END 2019-01-19 16:32 | disposition left against medical advice (07) | DRG 870 ==
LOC: D.ER 22:07 → D.EDHOLD 01-04 01:40 → D.ICU 01-04 01:40 → D.MS 01-04 02:23 → D.ICU 01-04 03:18 → D.M2 01-16 15:09
PROVIDERS: Emergency Medicine; Family Medicine; Internal Medicine Pulmonary Disease; Radiology Diagnostic Radiology; ADMIT Internal Medicine Nephrology; ATTEND Internal Medicine Nephrology
PROC: 0W9B30Z Drainage of Left Pleural Cavity with Drainage Device, Percutaneous Approach (ICD-10-PCS; principal; 2019-01-04)
PROC: 5A1955Z Respiratory Ventilation, Greater than 96 Consecutive Hours (ICD-10-PCS; 2019-01-04)
PROC: 0BH17EZ Insertion of Endotracheal Airway into Trachea, Via Natural or Artificial Opening (ICD-10-PCS; 2019-01-04)
PROC: 05H633Z Insertion of Infusion Device into Left Subclavian Vein, Percutaneous Approach (ICD-10-PCS; 2019-01-05)
PROC: 0BCB8ZZ Extirpation of Matter from Left Lower Lobe Bronchus, Via Natural or Artificial Opening Endoscopic (ICD-10-PCS; 2019-01-05)
PROC: 0BC68ZZ Extirpation of Matter from Right Lower Lobe Bronchus, Via Natural or Artificial Opening Endoscopic (ICD-10-PCS; 2019-01-05)
PROC: 0W9B30Z Drainage of Left Pleural Cavity with Drainage Device, Percutaneous Approach (ICD-10-PCS; 2019-01-06)
PROC: 3E06317 Introduction of Other Thrombolytic into Central Artery, Percutaneous Approach (ICD-10-PCS; 2019-01-12)
DX: A41.9 Sepsis, unspecified organism (principal); J86.9 Pyothorax without fistula; J96.01 Acute respiratory failure with hypoxia; J96.02 Acute respiratory failure with hypercapnia; J18.9 Pneumonia, unspecified organism; R53.2 Functional quadriplegia; F17.203 Nicotine dependence unspecified, with withdrawal; J44.1 Chronic obstructive pulmonary disease with (acute) exacerbation; E87.2 Acidosis; E11.9 Type 2 diabetes mellitus without complications; I10 Essential (primary) hypertension; K21.9 Gastro-esophageal reflux disease without esophagitis; E87.6 Hypokalemia; D64.9 Anemia, unspecified; M19.90 Unspecified osteoarthritis, unspecified site; F41.9 Anxiety disorder, unspecified; E78.5 Hyperlipidemia, unspecified; I51.7 Cardiomegaly; I48.0 Paroxysmal atrial fibrillation